=== PATIENT | male | born 1990 | race Hispanic/Latino ===

== ENCOUNTER 2018-08-22 06:48 | Emergency (ER) | payer SELFPAY ==
[2018-08-22] MEDS ORDERED: Fluorescein Opthalmic Strip ONE (06:59)
[2018-08-22] MEDS ORDERED: Proparacaine 0.5% Opth 15 ML BOT ONE (06:59)
[2018-08-22] MEDS ORDERED: Adacel (T-DAP) 0.5 ML SYRINGE ONE (07:19)
== END 2018-08-22 07:36 | disposition home or self-care (01) ==
LOC: SCSER 06:48
DX: S05.02XA Injury of conjunctiva and corneal abrasion without foreign body, left eye, initial encounter (principal); Z23 Encounter for immunization; W22.8XXA Striking against or struck by other objects, initial encounter
CPT/HCPCS: 90471; 90715